=== PATIENT | female | born 1980 | race Caucasian/White ===

== ENCOUNTER 2017-09-27 16:26 | Inpatient (IN) ==
[2017-09-27] MEDS ORDERED: ACETAMINOPHEN 325 MG TABLET PO PRN (18:49)
[2017-09-27 20:06] LABS: Calcium 9.3 MG/DL (8.5-10.1); Osmolality,Calculated 283.4 MOS/KG (273-304); Potassium 4.2 MMOL/L (3.5-5.1)
[2017-09-27] MEDS: ONDANSETRON 4 MG/2 ML VIAL IV PRN ×2 (20:06→23:49)
[2017-09-27] MEDS: SODIUM CHLORIDE 0.9% 1,000 ML IV SCH (20:09)
[2017-09-27] MEDS: CIPROFLOXACIN INJ 400 MG in PREMIX 1 EACH IV SCH (20:11)
[2017-09-28] MEDS: metroNIDAZOLE INJ 500 MG in PREMIX 1 EACH IV SCH ×4 (01:46→22:06)
[2017-09-28] MEDS: ONDANSETRON 4 MG/2 ML VIAL IV PRN (04:30)
[2017-09-28 05:47] LABS: Basophils % 0.1 % (0.0-0.8); Hematocrit 42.6 VOL% (35.7-47.0); Hemoglobin 14.2 GM/DL (12.0-16.0); Immature Granulocytes % 0.7 %; Immature Granulocytes Absolute 0.08 #; Lymphocytes % 17.5 % (21.3-54.2); Mean Corpuscular HGB Conc 33.3 GM/DL (32-36); Mean Corpuscular Hemoglobin 29 PG (27-34); Mean Corpuscular Volume 86.4 FL (87-102); Mean Platelet Volume 10.6 FL (9.6-12.0); Monocytes # 0.6 10*3/uL (0.11-0.8); Monocytes % 4.9 % (1.7-12.7); Neutrophils # 8.5 10*3/uL (1.4-7.4); Neutrophils % 76.8 % (38.7-73.9); Platelet Count 286 T/CUMM (130-400); Red Blood Count 4.93 MC/CUMM (3.8-5.5); White Blood Count 11.1 T/CUMM (4-12)
[2017-09-28 06:36] LABS: Calcium 9.1 MG/DL (8.5-10.1); Osmolality,Calculated 279.4 MOS/KG (273-304); Potassium 3.9 MMOL/L (3.5-5.1)
[2017-09-28] MEDS ORDERED: SUMAtriptan 6 MG/0.5 ML VIAL SUBCUT ONE (07:44)
[2017-09-28] MEDS ORDERED: diphenhydrAMINE 50 MG/1 ML VIAL IV ONE (07:45)
[2017-09-28] MEDS ORDERED: METOCLOPRAMIDE 10 MG/2 ML VIAL IV ONE (07:45)
[2017-09-28] MEDS ORDERED: ASPIRIN CHEW 81 MG TABLET PO ONE ×4 (08:00→08:01)
[2017-09-28 08:25] LABS: Basophils % 0.2 % (0.0-0.8); Eosinophils # 0.1 10*3/uL (0.0-0.87); Eosinophils % 0.4 % (0.00-10.9); Hematocrit 40.5 VOL% (35.7-47.0); Hemoglobin 14.3 GM/DL (12.0-16.0); Immature Granulocytes % 0.5 %; Immature Granulocytes Absolute 0.07 #; Lymphocytes # 3.1 10*3/uL (1.4-4.0); Mean Corpuscular HGB Conc 35.3 GM/DL (32-36); Mean Corpuscular Hemoglobin 29 PG (27-34); Mean Corpuscular Volume 82.7 FL (87-102); Monocytes # 1.1 10*3/uL (0.11-0.8); Monocytes % 7.5 % (1.7-12.7); Neutrophils # 10.6 10*3/uL (1.4-7.4); Neutrophils % 70.4 % (38.7-73.9); Platelet Count 244 T/CUMM (130-400); Red Cell Distribution Width 12.1 % (9.3-17.3)
[2017-09-28] MEDS ORDERED: SUMAtriptan 6 MG/0.5 ML VIAL SUBCUT PRN (08:32)
[2017-09-28] MEDS ORDERED: METOCLOPRAMIDE 10 MG/2 ML VIAL IV PRN (08:33)
[2017-09-28 08:54] LABS: Alanine Aminotransferase 38 U/L (13-56); Albumin 4.2 G/DL (3.4-5.0); Alkaline Phosphatase 84 U/L (45-117); Aspartate Amino Transferase 15 U/L (0-37); Blood Urea Nitrogen 12 MG/DL (7-18); Calcium 9.6 MG/DL (8.5-10.1); Glucose 102 MG/DL (74-106); Osmolality,Calculated 282.1 MOS/KG (273-304); Potassium 3.7 MMOL/L (3.5-5.1); Sodium 142 MMOL/L (136-145); Total Protein 7.5 G/DL (6.4-8.3); Troponin I Only < 0.015 NG/ML (0.00-0.045)
[2017-09-28] MEDS ORDERED: PANTOPRAZOLE 40 MG TABLET PO SCH (09:00)
[2017-09-28] MEDS: CIPROFLOXACIN INJ 400 MG in PREMIX 1 EACH IV SCH ×2 (09:39→20:57)
[2017-09-28] MEDS: SODIUM CHLORIDE 0.9% 1,000 ML IV SCH ×3 (11:56→20:57)
[2017-09-28] MEDS ORDERED: KETOROLAC 30 MG/1 ML VIAL IV ONE (13:09)
[2017-09-28] MEDS ORDERED: PROCHLORPERAZINE 5 MG TABLET PO PRN (13:09)
[2017-09-28 19:54] LABS: Apearance,Urine CLEAR (Clear); Bilirubin,Urine Negative (Negative); Blood, Urine Small mg/dL (Negative); Glucose,Urine (UA) Negative (Negative); Ketones,Urine Negative (Negative); Mucus,Urine Occasional /LPF (Occasional); Nitrite,Urine Negative (Negative); Protein,Urine Negative; RBC,Urine 1 /HPF (0-4); Squamous Epithelial Cell,Urine Occasional /HPF (0-10); Urine Color Yellow (Yellow); Urine Specific Gravity 1.017 (1.001-1.035); Urine Urobilinogen < 2.0 EU/DL (0.2-1.0); WBC,Urine <1 /HPF (0-6)
[2017-09-28] MEDS: PANTOPRAZOLE 40 MG VIAL IV SCH (20:58)
[2017-09-28] MEDS: KETOROLAC 15 MG/1 ML VIAL IV PRN (21:23)
[2017-09-29] MEDS: metroNIDAZOLE INJ 500 MG in PREMIX 1 EACH IV SCH ×3 (05:56→21:03)
[2017-09-29] MEDS: SODIUM CHLORIDE 0.9% 1,000 ML IV SCH ×3 (06:03→19:21)
[2017-09-29] MEDS ORDERED: AZTREONAM 1,000 MG VIAL IM SCH (07:30)
[2017-09-29] MEDS: AZTREONAM 1,000 MG in SYRINGE 1 EACH IV SCH ×2 (09:22→17:08)
[2017-09-29] MEDS: PANTOPRAZOLE 40 MG VIAL IV SCH ×2 (09:25→21:03)
[2017-09-29] MEDS: KETOROLAC 15 MG/1 ML VIAL IV PRN ×3 (09:28→22:45)
[2017-09-29] MEDS: diphenhydrAMINE 50 MG/1 ML VIAL IV PRN ×2 (13:12→21:25)
[2017-09-29] MEDS: ONDANSETRON 4 MG/2 ML VIAL IV PRN (13:13)
[2017-09-30] MEDS: AZTREONAM 1,000 MG in SYRINGE 1 EACH IV SCH ×2 (00:07→10:22)
[2017-09-30] MEDS: SODIUM CHLORIDE 0.9% 1,000 ML IV SCH (04:21)
[2017-09-30] MEDS: metroNIDAZOLE INJ 500 MG in PREMIX 1 EACH IV SCH (05:30)
[2017-09-30] MEDS: KETOROLAC 15 MG/1 ML VIAL IV PRN (05:34)
[2017-09-30 06:46] LABS: Basophils # 0.1 10*3/uL (0.0-0.2); Basophils % 0.5 % (0.0-0.8); Eosinophils # 0.3 10*3/uL (0.0-0.87); Eosinophils % 2.7 % (0.00-10.9); Hematocrit 40.5 VOL% (35.7-47.0); Immature Granulocytes % 0.5 %; Immature Granulocytes Absolute 0.05 #; Lymphocytes # 3.1 10*3/uL (1.4-4.0); Lymphocytes % 33.5 % (21.3-54.2); Mean Corpuscular HGB Conc 34.6 GM/DL (32-36); Mean Corpuscular Hemoglobin 29 PG (27-34); Mean Corpuscular Volume 82.8 FL (87-102); Mean Platelet Volume 10.2 FL (9.6-12.0); Monocytes # 0.7 10*3/uL (0.11-0.8); Neutrophils % 54.8 % (38.7-73.9); Platelet Count 240 T/CUMM (130-400); Red Blood Count 4.89 MC/CUMM (3.8-5.5); Red Cell Distribution Width 12.3 % (9.3-17.3); White Blood Count 9.2 T/CUMM (4-12)
[2017-09-30 07:21] LABS: Albumin 3.9 G/DL (3.4-5.0); Bilirubin,Total 0.9 MG/DL (0.2-1.0); Calcium 8.7 MG/DL (8.5-10.1); Osmolality,Calculated 278.4 MOS/KG (273-304); Potassium 3.9 MMOL/L (3.5-5.1); Total Protein 6.8 G/DL (6.4-8.3)
[2017-09-30] MEDS ORDERED: LIDOCAINE 1% 5 ML VIAL ONE (09:00)
[2017-09-30] MEDS ORDERED: PROPOFOL 200 MG/20 ML VIAL IV ONE (09:00)
[2017-09-30] MEDS ORDERED: PANTOPRAZOLE 40 MG TABLET PO SCH (09:30)
[2017-09-30] MEDS: PANTOPRAZOLE 40 MG VIAL IV SCH (09:43)
[2017-09-30 11:34] VITALS: BP 156/87
== END 2017-09-30 15:10 | disposition home or self-care (01) | DRG 382 ==
LOC: SUATTDRO 18:02 → N.2E 18:02
PROVIDERS: ADMIT Internal Medicine; ATTEND Internal Medicine